=== PATIENT | male | born 1955 | race Caucasian/White ===

== ENCOUNTER 2018-07-24 08:50 | Day surgery (SDC) | payer OTHER ==
[2018-07-18 14:58] VITALS: BMI 28.1
[2018-07-24 09:10] VITALS: TEMP 98.7
[2018-07-24 12:13] VITALS: BP 118/64; PULSE 63
== END 2018-07-24 12:00 | disposition home or self-care (01) ==
LOC: FASU-ENDO 08:50
PROVIDERS: ATTEND Internal Medicine Gastroenterology
PROC: 0DJD8ZZ Inspection of Lower Intestinal Tract, Via Natural or Artificial Opening Endoscopic (ICD-10-PCS; principal; 2018-07-24 10:00)
DX: Z12.11 Encounter for screening for malignant neoplasm of colon (principal); Z80.0 Family history of malignant neoplasm of digestive organs; K57.30 Diverticulosis of large intestine without perforation or abscess without bleeding